=== PATIENT | male | born 1975 | race Caucasian/White ===

== ENCOUNTER 2022-07-01 11:35 | Emergency (ER) | payer OTHER ==
[2022-07-01] MEDS ORDERED: ASPIRIN CHEW 81 MG TABLET PO STA (11:59)
--- NOTE | 2022-07-01 12:01 | ED Physician Documentation ---
PD HPI CHEST PAIN - Stated complaint Stated Complaint: CHEST PX/SOA - Chief complaint Chief Complaint: Cardiac - History obtained from History obtained from: Patient - Additional information Additional information: 47-year-old gentleman with no history of coronary disease. He did have a reportedly negative stress test maybe 5 years ago per him for some chest issues that he thinks was more related to anxiety. Today he was walking his dog downhill, exertion was not too much and he developed substernal chest pressure with sweating. It has mostly gone away but is still present just a bit. It sta rted around 1030 this morning. He denies pedal edema or calf pain. He denies a history of hypertension or hypercholesterolemia. He does not use tobacco. No significant family history of coronary disease noting that he says his father had "a small heart problem". Review of Systems Ten Systems: 10 systems reviewed and negative Constitutional: reports: Sweats Cardiac: reports: Chest pain / pressure Respiratory: reports: Dyspnea. denies: Cough PD PAST MEDICAL HISTORY - Present Medications Home Medications: Ambulatory Orders Medication Instructions Recorded Confirmed No Known Home Medications 07/01/22 07/01/22 - Allergies Allergies/Adverse Reactions: Allergies Allergy/AdvReac Type Severity Reaction Status Date / Time No Known Drug Allergies Allergy Verified 07/01/22 11:38 PD ED PE NORMAL - Vitals Vital signs reviewed: Yes - General General: Alert and oriented X 3, No acute distress - HEENT HEENT: PERRL, EOMI - Neck Neck: Supple, no meningeal sign, No bony TTP - Cardiac Cardiac: RRR, No murmur - Respiratory Respiratory: No respiratory distress, Clear bilaterally - Abdomen Abdomen: Normal bowel sounds, Soft, Non tender - Back Back: No CVA TTP, No spinal TTP - Derm Derm: Normal color, Warm and dry - Extremities Extremities: No edema, No calf tenderness / cord - Neuro Neuro: Alert and oriented X 3, Normal speech Results - Vitals Vitals: Vital Signs - 24 hr 07/01/22 07/01/22 07/01/22 11:39 13:19 14:00 Temperature 37.0 C Heart Rate 75 78 61 Respiratory 24 20 17 Rate Blood Pressure 155/111 H 117/87 H 128/86 H O2 Saturation 96 99 98 Oxygen O2 Source Room air - EKG (time done) 1137 Rate: Rate (enter#) (72) Rhythm: NSR [place]: Normal Intervals: Normal [place] QRS: Normal Ischemia: Q waves (anterior). No: ST elevation c/w ischemia, ST depression Computer interpretation: Agree with computer - Labs Labs: Laboratory Tests 07/01/22 07/01/22 07/01/22 12:06 12:06 12:06 WBC 5.6 RBC 4.96 Hgb 15.5 Hct 46.6 MCV 94.0 MCH 31.3 H MCHC 33.3 RDW 13.4 Plt Count 258 MPV 9.2 Neut # (Auto) 3.1 Lymph # (Auto) 1.7 [place] # (Auto) 0.6 Eos # (Auto) 0.2 Baso # (Auto) 0.0 Absolute Nucleated RBC 0.00 Nucleated RBC % 0.0 Sodium 139 Potassium 4.3 Chloride 102 Carbon Dioxide 27 Anion Gap 10.0 BUN 16 Creatinine 0.8 Estimated GFR (MDRD) 103 Glucose 104 H Calcium 9.9 Total Bilirubin 0.7 AST 28 ALT 40 Alkaline Phosphatase 64 Troponin I High Sens 6.2 Total Protein 7.4 Albumin 4.4 Globulin 3.0 Albumin/Globulin Ratio 1.5 Lipase 29 07/01/22 13:54 WBC RBC Hgb Hct MCV MCH MCHC RDW Plt Count MPV Neut # (Auto) Lymph # (Auto) [place] # (Auto) Eos # (Auto) Baso # (Auto) Absolute Nucleated RBC Nucleated RBC % Sodium Potassium Chloride Carbon Dioxide Anion Gap BUN Creatinine Estimated GFR (MDRD) Glucose Calcium Total Bilirubin AST ALT Alkaline Phosphatase Troponin I High Sens 5.9 Total Protein Albumin Globulin Albumin/Globulin Ratio Lipase - Rads (name of study) Single view chest x-ray is unremarkable Radiology: EMP read contemporaneously PD MEDICAL DECISION MAKING - ED course ED course: 47-year-old gentleman presents after a concerning chest pain episode. Thankfully his EKG and 2 sets of troponins done here were without evidence of active ischemia. That said I clarified with him that this does not rule out that today's episode could have been angina and he needs urgent follow-up. Departure - Departure Disposition: 01 Home, Self Care Clinical Impression: Chest pain Qualifiers: Chest pain type: unspecified Qualified Code(s): R07.9 - Chest pain, unspecified Condition: Good Record reviewed to determine appropriate education?: Yes Instructions: Angina Dc Comments: You are seen today for concerning chest pain. Thankfully your EKG and 2 troponins were done without evidence of heart attack. That said this still could have been angina and you need urgent follow-up with your primary care physician for consideration for stress testing, call today for the next available appointment. Until told otherwise, I want you taking a baby aspirin, 81 mg a day. Return if chest pain recurs immediately. Preferably by ambulance.
--- NOTE | 2022-07-01 12:05 | XRAY Report ---
PROCEDURE: Chest 1 View X-Ray INDICATIONS: Chest pain TECHNIQUE: One view of the chest was acquired. COMPARISON: None. FINDINGS: Surgical changes and devices: None. Lungs and pleura: No pleural effusions or pneumothorax. Lungs are clear. Mediastinum: Mediastinal contours appear normal. Heart size is normal. Bones and chest wall: No suspicious bony lesions. Overlying soft tissues appear unremarkable. IMPRESSION: No acute finding. Reviewed by: Robert Rea MD on 07/01/2022 12:04 PM PDT Approved by: Robert Rea MD on 07/01/2022 12:04 PM PDT Station ID: [id number]
[2022-07-01 12:12] LABS: BASOPHILS % (AUTO) 0.5 %; EOSINOPHILS # (AUTO) 0.2 10^3/uL (0.0-0.7); EOSINOPHILS % (AUTO) 3.4 %; HCT - HEMATOCRIT 46.6 % (42.0-52.0); HGB - HEMOGLOBIN 15.5 g/dL (14.0-18.0); LYMPHOCYTES # (AUTO) 1.7 10^3/uL (1.5-3.5); LYMPHOCYTES % (AUTO) 30.2 %; MEAN CORPUSCULAR HEMOGLOBIN 31.3 pg (27.0-31.0); MEAN CORPUSCULAR HGB CONC 33.3 g/dL (32.0-36.0); MEAN PLATELET VOLUME 9.2 fL (7.4-11.4); MONOCYTES # (AUTO) 0.6 10^3/uL (0.0-1.0); MONOCYTES % (AUTO) 9.9 %; NEUTROPHILS # (AUTO) 3.1 10^3/uL (1.5-6.6); NEUTROPHILS % (AUTO) 55.8 %; PLT - PLATELET COUNT 258 10^3/uL (130-450); RED BLOOD COUNT 4.96 10^6/uL (4.70-6.10); RED CELL DISTRIBUTION WIDTH 13.4 % (12.0-15.0); WHITE BLOOD COUNT 5.6 x10^3/uL (4.8-10.8)
[2022-07-01 13:31] LABS: ALBUMIN 4.4 g/dL (3.2-5.5); ALBUMIN/GLOBULIN RATIO 1.5 (1.0-2.2); BILIRUBIN,TOTAL 0.7 mg/dL (0.2-1.0); CALCIUM 9.9 mg/dL (8.5-10.3); CREATININE 0.8 mg/dL (0.6-1.2); POTASSIUM 4.3 mmol/L (3.5-5.0); TOTAL PROTEIN 7.4 g/dL (6.7-8.2)
[2022-07-01 14:06] VITALS: BP 128/86
== END 2022-07-01 14:42 | disposition home or self-care (01) ==
LOC: ED 11:35
DX: R07.89 Other chest pain (principal); Z82.49 Family history of ischemic heart disease and other diseases of the circulatory system
CPT/HCPCS: 36415; 71045; 80053; 83690; 84484; 85025; 93005; 99284; A9270